=== PATIENT | female | born 1990 | race Caucasian/White ===

== ENCOUNTER 2022-09-18 07:00 | Inpatient (IN) | payer OTHER, SELFPAY ==
[2022-09-18] VITALS (42 sets, daily range): BP systolic 104–145; BP diastolic 53–88; PULSE 80–111; TEMP 36.2–37.1; O2SAT 93–100; BMI 35.4
[2022-09-18] MEDS: LACTATED RINGERS 500 ML 999 ML IV (08:55)
[2022-09-18 09:03] LABS: Absolute Lymphocyte Count 1.35 X10^3/uL (0.83-4.51); Absolute Neutrophil Count 10.9 X10^3/uL (2.0-7.7); Basophil# 0.04 X10^3/uL; Basophil% 0.3 % (0-1); Eosinophils% 1.5 % (0-5); Hematocrit 35.4 % (37-47); Hemoglobin 12.2 g/dL (12.0-15.0); Lymphocyte # 1.35 X10^3/ul (0.83-4.51); Lymphocyte % 10.3 % (19-41); Mean Corp Hgb Conc 34.5 g/dL (32-36); Mean Corpuscular Hgb 31.5 pg (27.0-32.0); Mean Corpuscular Volume 91.5 fL (81-99); Mean Platelet Vol. 10.2 fl (6.2-12.0); Monocyte# 0.53 X10^3/uL; NRBC Flagged by Analyzer 0 % (0-5); Neutrophil # 10.88 X10^3/uL (2.7-7.7); Neutrophil % 83.1 % (47-70); Platelet Count 287 K/mm3 (150-450); RBC Distribution Width CV 13.1 % (11.6-14.6); RBC Distribution Width SD 42.6 fl (35.1-43.9); Red Blood Count 3.87 M/mm3 (4.2-5.4); White Blood Count 13.1 K/mm3 (4.4-11.0)
[2022-09-18] MEDS: Lactated Ringers 1,000 ML 200 ML IV (09:35)
[2022-09-18 09:54] LABS: Syphilis Antibodies Non-reactive
[2022-09-18] MEDS: fentaNYL-bupivacaine (epidural) 100 ML BAG EPIDURAL ×2 (10:00→13:46)
--- NOTE | 2022-09-18 12:03 | PCM.HP.OB ---
HPI - General General Date of Admission: 09/18/22 Date of Service: 09/18/22 Chief Complaint: labor HPI Narrative TONYA WILSON, 1 para 0 who presents at 40 weeks gestation with EDC 09/18/2022 complaining of leaking of fluid since approximately 5:30 AM. She is also had some increased contractions. She was scheduled for induction today but arrived with ruptured membranes. She denied any gross vaginal bleeding. She has had good movement. Her was complicated to date by maternal obesity with BMI 35. She had an abnormal 1 hour glucose but a normal 3-hour. Maternal Data Information Final TOBY: 09/18/22 Gestational age: 40 0/7 PFSH PFS Medical History (Updated 09/18/22 @ 12:[address] Funmi Antoine MD) Infertility Home Medications vit no.95-ferrous fumarate 28 mg-folic acid 800 mcg tablet () 1 tab PO DAILY 09/18/22 [History Last Taken Unknown] Allergy/AdvReac Type Severity Reaction Status Date / Time Sulfa (Sulfonamide AdvReac Intermediate itchy Verified 09/18/22 07:43 Antibiotics) Family History (Updated 09/18/22 @ 08:51 by Josephine Romo) Father Heart disease Grandfather Heart disease Surgical History (Updated 09/18/22 @ 08:49 by Josephine Romo) H/O knee surgery [place] teeth extracted Social History Smoking Status: Never smoker History Elective abortions Hx Para 0 Spontaneous abortions Hx # Term Pregnancies Ectopic pregnancies Hx # Pregnancies Multiple births # of living children ROS Constitutional Constitutional: Denies fatigue, fever(s) or malaise Eyes Eyes: Denies change in vision ENT HEENT: Denies dizziness or headache(s) Cardiovascular Cardiovascular: Denies chest pain, dyspnea or lightheadedness Respiratory/Chest Respiratory/Chest: Denies cough or dyspnea Gastrointestinal Gastrointestinal: Denies change in bowel habits Genitourinary Genitourinary: Denies burning urination or genital lesions Integumentary Integumentary: Denies rash Neurologic Neurologic: Denies confusion, dizziness, headache(s), numbness or weakness Vital Signs Vital Signs Vital Signs: 09/18/22 07:34 09/18/22 07:34 09/18/22 07:40 Temperature 97.7 F L Temperature Source Pulse Rate 88 Blood Pressure 136/86 H BP Systolic 136 BP Diastolic 86 Pulse Ox 09/18/22 09:37 09/18/22 09:37 09/18/22 09:37 Temperature Temperature Source Temporal Pulse Rate 98 Blood Pressure 129/88 H BP Systolic 129 BP Diastolic 88 Pulse Ox 09/18/22 09:37 09/18/22 09:37 09/18/22 09:43 Temperature 97.2 F L Temperature Source Pulse Rate 97 Blood Pressure BP Systolic BP Diastolic Pulse Ox 99 09/18/22 09:43 09/18/22 09:48 09/18/22 09:48 Temperature Temperature Source Pulse Rate 96 Blood Pressure BP Systolic BP Diastolic Pulse Ox 99 93 09/18/22 09:48 09/18/22 09:48 09/18/22 09:53 Temperature Temperature Source Pulse Rate 102 H 94 Blood Pressure BP Systolic BP Diastolic Pulse Ox 99 09/18/22 09:53 09/18/22 09:54 09/18/22 09:54 Temperature Temperature Source Pulse Rate 94 Blood Pressure 134/88 H BP Systolic 134 BP Diastolic 88 Pulse Ox 99 09/18/22 09:58 09/18/22 09:58 09/18/22 10:01 Temperature Temperature Source Pulse Rate 99 Blood Pressure 109/67 BP Systolic 109 BP Diastolic 67 Pulse Ox 98 09/18/22 10:01 09/18/22 10:03 09/18/22 10:03 Temperature Temperature Source Pulse Rate 100 97 Blood Pressure BP Systolic BP Diastolic Pulse Ox 97 09/18/22 10:05 09/18/22 10:05 09/18/22 10:08 Temperature Temperature Source Pulse Rate 91 96 Blood Pressure 113/66 BP Systolic 113 BP Diastolic 66 Pulse Ox 09/18/22 10:08 09/18/22 10:10 09/18/22 10:10 Temperature Temperature Source Pulse Rate 91 Blood Pressure 104/62 BP Systolic 104 BP Diastolic 62 Pulse Ox 97 09/18/22 10:13 09/18/22 10:13 09/18/22 10:15 Temperature Temperature Source Pulse Rate 89 86 Blood Pressure BP Systolic BP Diastolic Pulse Ox 97 09/18/22 10:15 09/18/22 10:18 09/18/22 10:18 Temperature Temperature Source Pulse Rate 95 Blood Pressure BP Systolic BP Diastolic Pulse Ox 93 97 09/18/22 10:20 09/18/22 10:20 09/18/22 10:23 Temperature Temperature Source Pulse Rate 90 86 Blood Pressure 115/53 L BP Systolic 115 BP Diastolic 53 Pulse Ox 09/18/22 10:23 09/18/22 10:25 09/18/22 10:25 Temperature Temperature Source Pulse Rate 82 Blood Pressure 110/60 BP Systolic 110 BP Diastolic 60 Pulse Ox 98 09/18/22 10:28 09/18/22 10:28 09/18/22 10:30 Temperature Temperature Source Pulse Rate 86 Blood Pressure 119/69 BP Systolic 119 BP Diastolic 69 Pulse Ox 100 09/18/22 10:30 09/18/22 10:33 09/18/22 10:33 Temperature Temperature Source Pulse Rate 85 90 Blood Pressure BP Systolic BP Diastolic Pulse Ox 99 09/18/22 10:36 09/18/22 10:36 09/18/22 10:38 Temperature Temperature Source Pulse Rate 89 80 Blood Pressure 105/67 BP Systolic 105 BP Diastolic 67 Pulse Ox 09/18/22 10:38 09/18/22 10:39 09/18/22 10:39 Temperature Temperature Source Pulse Rate 84 Blood Pressure 107/64 BP Systolic 107 BP Diastolic 64 Pulse Ox 100 09/18/22 10:50 09/18/22 10:50 09/18/22 11:23 Temperature 97.6 F L Temperature Source Temporal Pulse Rate Blood Pressure 111/71 BP Systolic 111 BP Diastolic 71 Pulse Ox 09/18/22 11:23 09/18/22 11:22 09/18/22 11:22 Temperature 97.2 F L Temperature Source Pulse Rate 85 Blood Pressure BP Systolic BP Diastolic Pulse Ox 99 09/18/22 11:23 09/18/22 11:23 09/18/22 11:58 Temperature 97.2 F L Temperature Source Temporal Pulse Rate 81 Blood Pressure BP Systolic BP Diastolic Pulse Ox 09/18/22 11:58 09/18/22 11:59 09/18/22 11:59 Temperature 98.8 F Temperature Source Pulse Rate Blood Pressure 125/75 H BP Systolic 125 BP Diastolic 75 Pulse Ox 99 09/18/22 11:59 Temperature Temperature Source Pulse Rate 83 Blood Pressure BP Systolic BP Diastolic Pulse Ox Weight Weight: 96.615 kg Body Mass Index (BMI) 35.4 Physical Exam Const alert and no apparent distress General Appearance: cooperative HEENT normocephalic Resp normal respiratory effort Cardio regular rate GI soft to palpation GI Narrative: gravid, nontender, appropriate for gestational age Extremity no calf tenderness General Extremity: edema Skin no wounds Rashes: No rashes noted Psych activity/motor behavior normal Labs Labs Labs: Blood Type A POSITIVE Antibody Screen NEGATIVE Hct 35.4 % (37-47) L Hgb 12.2 g/dL (12.0-15.0) Syphilis Total Ab Non-reactive Assessment & Plan (1) 40 weeks gestation of : PLAN: 32-year-old 1 para 0 at 40 weeks gestation with spontaneous rupture membranes in labor. Estimated weight is less than 4500 g clinically and pelvis is clinically adequate to expect vaginal delivery. May have epidural or other pain control measures as needed. Will augment with Pitocin if needed. (2) SROM (spontaneous rupture of membranes): (3) Spontaneous onset of labor:
[2022-09-18] MEDS: LACTATED RINGERS 500 ML 200 ML IV (15:00)
[2022-09-18] MEDS: Oxytocin 15 Units/NS 250ml 15 UNITS/250 ML IV.SOLN 83 UNITS IV (18:18)
[2022-09-18] MEDS: Oxytocin 10 UNITS/ML Vial IM (18:22)
--- NOTE | 2022-09-18 18:41 | EX.PCM.OBRPT ---
Assessment & Plan (1) Vacuum extractor delivery, delivered: Maternal Data Information Final TOBY: 09/18/22 Gestational age: 40 0/7 Vaginal Delivery Maternal Presentation Maternal Presentation: Active Labor Operative Information Date of Procedure: 09/18/22 Pre-Operative Diagnosis: maternal exhaustion Post-Operative Diagnosis: same Surgery / Procedure Performed: Vacuum Assisted Vaginal Delivery (outlet) Type of Anesthesia: Epidural Special Medications: none Drain: Perera to straight drain Estimated Blood Loss: 400 Time of Delivery: 16:15 Findings Description of Procedure: Patient had been pushing 3 hours. Epidural was still adequate. Position was GABRIELA. Perera catheter was in place. Estimated weight was less than 4500 g and pelvis clinically adequate. Patient was pushing with good effort and had made good descent but was exhausted. The skull was on the pelvic floor and she was labia approximately 2 cm with pushing. There was moderate caput. I discussed with the patient and her partner risk benefits and alternatives to trial of vacuum-assisted vaginal delivery. After verbal consent was obtained the vacuum was placed on the flexion point and vacuum created 550 mmHg. I pulled with 2 pulls to and remove the vacuum. There were no pop offs. On the next push during the same contraction A vigorous male infant was delivered GABRIELA over a second-degree perineal laceration. A loose nuchal cord ?1 was easily reduced. The remainder the infant was delivered with maternal pushing and gentle traction only in less than 15 seconds. The Pitocin infusion was initiated for active management of the third stage. The cord was clamped and cut after 1 minute. The infant was attended to by the waiting nursing staff. The placenta was delivered spontaneously and intact. The cervix and vagina were intact. The second-degree perineal laceration was repaired with 2-0 Vicryl suture in a running standard fashion. Sponge and needle counts were correct. A vaginal sweep was completed by me. Presentation: GABRIELA Amniotic Membrane Rupture Type: Spontaneous Amniotic Fluid Description: Clear Placental Delivery Description: Spontaneous Placenta Disposition: [facility] Cord Vessel Description: 3 Vessels Cord Entanglement: Around neck x 1, loose Nuchal Cord Compression: Without compression Cord Gases: ABG and VBG Infant A Gender: Male (Serafin) (1 minute): 8 (5 minute): 9 Delayed Cord Clamping: Yes Post Vaginal Delivery Medications Given After Delivery: IV Pitocin and IM Pitocin Episiotomy Description: None Laceration: 2nd degree Complication Complications: None
[2022-09-18] MEDS: Ibuprofen 600 MG Tablet PO (19:36)
[2022-09-19 00:08] VITALS: BP 119/65; PULSE 85; RESP 16; TEMP 36.4
[2022-09-19 04:42] VITALS: BP 108/67; PULSE 84; RESP 16; TEMP 36.7
[2022-09-19] MEDS: Ibuprofen 600 MG Tablet PO (04:54)
[2022-09-19 08:45] VITALS: BP 121/87; PULSE 92; RESP 15; TEMP 36.6
[2022-09-19] MEDS: Acetaminophen 500 MG Tablet 1000 MG PO (09:24)
[2022-09-19] MEDS: Benzocaine/Lanolin/Aloe Vera 1 SPRAY EACH TOPICAL (09:24)
--- NOTE | 2022-09-19 10:30 | PCM.PN.OB ---
Subjective Subjective Doing well per patient and nursing staff. Ambulating and taking PO without difficulty. Voiding and passing flatus. Pain controlled. , services for assistance. Denies headache, visual changes, chest pain, shortness of breath, leg pain or increased bleeding. Lochia normal. Objective Data Objective Data Vital Signs: Vital Signs Temp Pulse Resp BP Pulse Ox O2 Del Method 97.8 F 92 15 121/87 H 99 Room Air 09/19/22 08:45 09/19/22 08:45 09/19/22 08:45 09/19/22 08:45 09/18/22 11:58 09/19/22 08:45 Oxygen Delivery Method Room Air Weight: 213 lb Body Mass Index (BMI) 35.4 Intake & Output: Intake and Output for Last 24 Hours 09/17/22 09/18/22 09/19/22 23:59 23:59 23:59 Intake Total 2137.5 / 2137.5 Output Total 1400 / 1400 350 / 350 Balance 737.5 / 737.5 -350 / -350 Lab / Micro Data 09/18/22 08:30 ROS Constitutional Constitutional: Reports systems reviewed and no addt'l complaints, except as documented; Denies headache(s) Eyes Eyes: Denies acute decrease in peripheral vision, blurry vision or change in vision ENT HEENT: Reports systems reviewed and no addt'l complaints, except as documented Cardiovascular Cardiovascular: Denies chest pain or dizziness Respiratory/Chest Respiratory/Chest: Denies cough, dyspnea, dyspnea on exertion, shortness of breath at rest or shortness of breath with exertion Gastrointestinal Gastrointestinal: Denies abdominal pain, diarrhea, nausea or vomiting Genitourinary Genitourinary: Denies abdominal discomfort Musculoskeletal Musculoskeletal: Denies limited range of motion Integumentary Integumentary: Reports systems reviewed and no addt'l complaints, except as documented Neurologic Neurologic: Reports systems reviewed and no addt'l complaints, except as documented Psychiatric Psychiatric: Reports systems reviewed and no addt'l complaints, except as documented Endocrine Endocrinology: Reports systems reviewed and no addt'l complaints, except as documented Hematologic/Lymphatic Hematologic/Lymphatic: Reports systems reviewed and no addt'l complaints, except as documented Allergic/Immunologic Allergic/Immunologic: Reports systems reviewed and no addt'l complaints, except as documented Physical Exam Const alert and oriented x3 General Appearance: cooperative Orientation / Consciousness: awake, oriented to person, oriented to place and oriented to time Exam Limitations: no limitations HEENT normocephalic Head and Scalp: normal to inspection, normocephalic and atraumatic Face and Sinus: normal facial exam Eyes General Eye: normal appearance of both eyes Neck full ROM Chest Chest: symmetrical chest wall rise Resp normal respiratory effort and normal air movement Auscultation: clear to auscultation bilaterally Cardio regular rate, regular rhythm, S1 normal heart sound, S2 normal heart sound, no murmurs, no rub, no gallops and no clicks GI normal to inspection, nondistended, normoactive bowel sounds and non-tender appearance of the vagina normal Bladder / Kidney Exam: no CVA tenderness Back/Spine normal ROM Extremity normal to inspection and full ROM Skin no rashes or lesions noted Neuro oriented x3, CN's II-XII intact bilaterally and moves all extremities Sensorium / Orientation: awake, alert and oriented to person Motor Exam: clonus absent Deep Tendon Reflexes: Rt Patellar (L4): 2+ and Lt Patellar (L4): 2+ Assessment & Plan (1) Vacuum extractor delivery, delivered: (2) Vaginal delivery: PLAN: Plan 1) Admit to labor and delivery 2) Vitals stable 3) I&Os 4) Pain controlled 5) Planning D/C home tomorrow 6)
[2022-09-19 12:24] VITALS: BP 118/81; PULSE 93; RESP 15; TEMP 36.8
[2022-09-19 16:05] VITALS: BP 113/53; PULSE 85; RESP 15; TEMP 36.6
[2022-09-19 20:22] VITALS: BP 108/63; PULSE 91; RESP 16; TEMP 36.8
[2022-09-20 02:09] VITALS: BP 125/84; PULSE 71; RESP 16; TEMP 36.1; O2SAT 97
--- NOTE | 2022-09-20 04:26 | PCM.PN.OB ---
Subjective Subjective Doing well per patient and nursing staff. Ambulating and taking PO without difficulty. Voiding and passing flatus. Pain controlled. , services for assistance. Denies headache, visual changes, chest pain, shortness of breath, leg pain or increased bleeding. Lochia normal. Objective Data Objective Data Vital Signs: Vital Signs Temp Pulse Resp BP Pulse Ox O2 Del Method 96.9 F L 71 16 125/84 H 97 Room Air 09/20/22 02:09 09/20/22 02:09 09/20/22 02:09 09/20/22 02:09 09/20/22 02:09 09/20/22 02:09 Oxygen Delivery Method Room Air Weight: 213 lb Body Mass Index (BMI) 35.4 Intake & Output: Intake and Output for Last 24 Hours 09/18/22 09/19/22 09/20/22 23:59 23:59 23:59 Intake Total 2137.5 / 2137.5 Output Total 1400 / 1400 350 / 350 Balance 737.5 / 737.5 -350 / -350 Lab / Micro Data 09/18/22 08:30 ROS Constitutional Constitutional: Reports systems reviewed and no addt'l complaints, except as documented; Denies headache(s) Eyes Eyes: Denies acute decrease in peripheral vision, blurry vision or change in vision ENT HEENT: Reports systems reviewed and no addt'l complaints, except as documented Cardiovascular Cardiovascular: Denies chest pain or dizziness Respiratory/Chest Respiratory/Chest: Denies cough, dyspnea, dyspnea on exertion, shortness of breath at rest or shortness of breath with exertion Gastrointestinal Gastrointestinal: Denies abdominal pain, diarrhea, nausea or vomiting Genitourinary Genitourinary: Denies abdominal discomfort Musculoskeletal Musculoskeletal: Denies limited range of motion Integumentary Integumentary: Reports systems reviewed and no addt'l complaints, except as documented Neurologic Neurologic: Reports systems reviewed and no addt'l complaints, except as documented Psychiatric Psychiatric: Reports systems reviewed and no addt'l complaints, except as documented Endocrine Endocrinology: Reports systems reviewed and no addt'l complaints, except as documented Hematologic/Lymphatic Hematologic/Lymphatic: Reports systems reviewed and no addt'l complaints, except as documented Allergic/Immunologic Allergic/Immunologic: Reports systems reviewed and no addt'l complaints, except as documented Physical Exam Const alert and oriented x3 General Appearance: cooperative Orientation / Consciousness: awake, oriented to person, oriented to place and oriented to time Exam Limitations: no limitations HEENT normocephalic Head and Scalp: normal to inspection, normocephalic and atraumatic Face and Sinus: normal facial exam Eyes General Eye: normal appearance of both eyes Neck full ROM Chest Chest: symmetrical chest wall rise Resp normal respiratory effort and normal air movement Auscultation: clear to auscultation bilaterally Cardio regular rate, regular rhythm, S1 normal heart sound, S2 normal heart sound, no murmurs, no rub, no gallops and no clicks GI normal to inspection, nondistended, normoactive bowel sounds and non-tender appearance of the vagina normal Bladder / Kidney Exam: no CVA tenderness Back/Spine normal ROM Extremity normal to inspection and full ROM Skin no rashes or lesions noted Neuro oriented x3, CN's II-XII intact bilaterally and moves all extremities Sensorium / Orientation: awake, alert and oriented to person Motor Exam: clonus absent Deep Tendon Reflexes: Rt Patellar (L4): 2+ and Lt Patellar (L4): 2+ Assessment & Plan (1) Vaginal delivery: (2) Vacuum extractor delivery, delivered: PLAN: Plan 1) PPD #2 2) 3) I&O 4) Vitals stable 5) Planning d/c home today 6) Follow up in 2 weeks and 6 weeks PP
--- NOTE | 2022-09-20 04:28 | PCM.DC.SUM ---
Providers Date of Admission: 09/18/22 Primary Care Physician: Dr. Michi Penaloza MD Reason For Visit: VAG DELIVERY Diagnosis Discharge Diagnosis (1) Vaginal delivery: Status: Acute Code(s): O80 - Encounter for full-term uncomplicated delivery (2) Vacuum extractor delivery, delivered: Status: Acute Code(s): O75.9 - Complication of labor and delivery, unspecified Plan 1) PPD #2 2) 3) I&O 4) Vitals stable 5) Planning d/c home today 6) Follow up in 2 weeks and 6 weeks PP Medications at Discharge Home Medications vit no.95-ferrous fumarate 28 mg-folic acid 800 mcg tablet () 1 tab PO DAILY 09/18/22 acetaminophen 500 mg tablet 1,000 mg (2 x 500 mg) PO Q6H PRN PRN Pain 1-10 Or Fever #0 tabs 09/20/22 ibuprofen 600 mg tablet 600 mg PO Q6H PRN PRN Pain Score 1-3 #0 tabs 09/20/22 Weight / BMI Weight Weight: 213 lb Body Mass Index (BMI) 35.4 ABG / Lab / Microbiology Data 09/18/22 08:30 Meaningful Use Info Meaningful Use Diagnoses (Choose all that apply): None applicable Discharge Plan Admission Admit Date/Time: 09/18/22 07:00 Primary Reason for Your Visit: vaginal delivery Attending Provider: Funmi Antoine Primary Care Provider: Michi Penaloza Discharge Orders/Prescriptions Prescriptions: New acetaminophen 500 mg Tablet 1,000 mg PO Q6H PRN PRN (Reason: Pain 1-10 Or Fever) Qty: 0 0RF ibuprofen 600 mg Tablet 600 mg PO Q6H PRN PRN (Reason: Pain Score 1-3) Qty: 0 0RF Continued PNV cmb#95-ferrous fumarate-FA [] 28 mg iron- 800 mcg tablet 1 tab PO DAILY Referrals / Follow Up: Michi Penaloza MD [Primary Care Provider] - Disposition Disposition (needs filled in before D/C Order can be placed): Home, Self Care
[2022-09-20 07:57] VITALS: BP 126/78; PULSE 78; RESP 16; TEMP 36.1; O2SAT 97
== END 2022-09-20 12:39 | disposition home or self-care (01) | DRG 807 ==
PROVIDERS: Advanced Practice Midwife; Admitting Provider Obstetrics & Gynecology; PCP Family Medicine; Visit Provider Obstetrics & Gynecology
DX: O42.92 Full-term premature rupture of membranes, unspecified as to length of time between rupture and onset of labor (principal); Z37.0 Single live birth; O69.81X0 Labor and delivery complicated by cord around neck, without compression, not applicable or unspecified; O70.1 Second degree perineal laceration during delivery; Z79.2 Long term (current) use of antibiotics; O99.214 Obesity complicating childbirth; O75.81 Maternal exhaustion complicating labor and delivery; Z3A.40 40 weeks gestation of pregnancy
CPT/HCPCS: 59025; 59050; 85025; 86780; 86850; 86900; 86901; 99221; J7120; G0378